=== PATIENT | male | born 1960 | race Caucasian/White ===

== ENCOUNTER → 2016-05-17 | Day surgery (SDC) | payer OTHER ==
[~2016-05-17] MED LIST: BUPIVACAINE 0.25%-EPINEPHRINE 1:200,000 30 ML ONE; FENTANYL 100 MCG/2 ML VIAL IV PRN; FENTANYL 100 MCG/2 ML VIAL ONE; HYDROmorphone 1 MG INJECTION IV PRN; LABETALOL 20 MG/4 ML SYRINGE IV PRN; Levofloxacin 500 mg/100 ml D5W 500 MG/100 ML RTU IV ONE; MEPERIDINE 25 MG/ML TUBEX IV PRN; ONDANSETRON HCL 4 MG ODT TAB PO PRN; ONDANSETRON HCL 4 MG/2 ML VIAL IV PRN; OXYCODONE HCL 5 MG TABLET ONE; PROMETHAZINE 25 MG/ML VIAL IV PRN; hydrALAZINE 20 MG/ML VIAL IV PRN
--- NOTE | 2016-05-17 09:42 | SC.ANESPOS ---
Post-Anesthesia Note LOC: [facility] Post-Anesthesia Assessment: Awake, Returned to Baseline, Hemodynamically Stable , Pain Control Adequate Phase I & II Recovery Complete: Yes Apparent Anesthesia Complication: No : N - Vital Signs Blood Pressure: 109/65 Pulse: 85 Resp Rate: 16 O2 Sat: 100 Temp: 97.4 F
--- NOTE | 2016-05-17 10:05 | HIM.ANES ---
Anesthesia Evaluation & Plan Diagnoses: UMBILICAL HERNIA WITHOUT OBSTRUCTION OR GANGRENE (05/17/16) Consented Procedure: UMBILICAL HERNIA REPAIR WITH MESH - Focused Review of Systems Cardiac History: No: Hx Cardiac Disorders HEENT: Yes: Other HEENT Problems Hx Other HEENT Problems: SEASONAL ALLERGIES Respiratory: Yes: Hx Asthma (Improved p allergy shots/no inhaler use for yrs), Hx Snoring Gastrointestinal: Yes: Hx Gastroesophageal Reflux Disease (Controlled p wgt loss ), Hx Gastrointestinal Disorders, Hx Colonoscopy Neurological/Musculoskeletal: No: Hx Neurological Disorders Psychological: No Hx Mental/Emotional Disorders Blood/Autoimmune: No: Hx AIDS, Hx Hepatitis (type) Smoking Status: Never smoker - Focused Physical Exam NPO since: 05/16/16 2300 Mallampati: Class IV Thyromental Distance: Greater than 3 Neck: Full Range of Motion Dental: Normal - no significant findings Cardiovascular/Chest: Normal Respiratory: Lungs clear Any problems with anesthesia, including nausea and vomiting?: No (NEVER HAD GENERAL ANESTHESIA) Any relatives with a history of Malignant Hyperthermia?: No Beta Nick given (if appropriate): N/A Does the patient have a history of Motion Sickness-: Yes Other: Allergies Allergy/AdvReac Type Severity Reaction Status Date / Time cat dander Allergy See Verified 05/17/16 09:52 Comments rabbit dander Allergy Difficulty Verified 05/17/16 09:52 Breathing Home Medications Medication Instructions Recorded Last Taken Type Fluticasone Propionate [Flonase] 1 - 2 spray YAMILE DAILY 05/04/16 05/16/16 07:00 History Alprazolam [Xanax] 0.25 - 0.5 mg PO DAILY PRN 05/14/16 05/17/16 08:05 History Cetirizine HCl [Zyrtec] 10 mg PO DAILY 05/14/16 05/17/16 08:00 History Albuterol Sulfate MDI [Proventil 2 puff INH Q4-6H PRN 05/17/16 Unknown History HFA] Height and Weight Patient's height 5 ft 10 in Patient's weight 230 lb Vital Signs Temperature 98.6 F 05/17/16 09:48 Pulse Rate 82 05/17/16 09:48 Respiratory Rate 18 05/17/16 09:48 Blood Pressure 131/80 05/17/16 09:48 Pulse Oxygen Saturation 97 05/17/16 09:48 - Anesthetic Plan Anesthesia Type: General ASA Class: 2 -: I have examined this patient and reviewed the medical record. The patient has been assessed prior to anesthesia. Risks and benefits of anesthesia and anesthetic technique options have been discussed and all questions answered. The patient accepts the risk and desires me to proceed with the planned anesthetic.
--- NOTE | 2016-05-17 12:55 | HIMOPRPT ---
DATE OF PROCEDURE: 05/17/16 PREOPERATIVE DIAGNOSES: Incarcerated umbilical hernia repair. POSTOPERATIVE DIAGNOSES: Same. PROCEDURES: Incarcerated umbilical hernia repair with mesh prosthesis. SURGEON: Hayden Treadwell MD ANESTHESIA: General. COMPLICATIONS: None. ESTIMATED BLOOD LOSS: Minimal. ANTIBIOTICS: Preoperative antibiotics given. INDICATIONS: Patient is a very pleasant 55-year-old male who had been found to have an umbilical hernia that had been enlarging and painful. We had felt he would benefit from hernia repair and had recommended so. We had explained the risks and benefits including the risk of infection, bleeding and anesthesia as well as the well-known risk of recurrence and mesh complications. He understood and agreed. OPERATIVE NOTE: The patient was brought to the operating room and placed on the operating table in the supine position. After adequate amount of general anesthesia he was prepped and draped in sterile manner. When given the okay by anesthesia after appropriate time-out a circum umbilical incision was made through the skin subcutaneous tissues was scalpel dissection. Bleeding was controlled with Bovie cautery. We carefully dissected around the hernia sac to the fascia and then entered the hernia sac without any problems. We closed the peritoneal defect after amputating the hernia sac and then created a preperitoneal space without any difficulties. Hemostasis was assured. A proceed patch was then placed in the preperitoneal space and sutured into position with 1. Vicryl sutures. Finally the defect in the fascia was brought together with [id number] 1. Vicryl sutures. The wound was irrigated and the umbilical skin was tacked down to the fascia with 3 0 Vicryl suture. Three 0 Vicryl suture was then used to bring the subcutaneous tissues together. Surgical clips were used to bring the skin together and a dry dressing was placed over top. The patient was awoke and taken recover room in excellent condition with correct sponge counts and needle counts.
[2016-05-17 13:57] VITALS: TEMP 97.4
[2016-05-17 14:44] VITALS: PULSE 85
[2016-05-17 14:54] VITALS: BP 109/65
== END ==
LOC: SDC 08:51
PROVIDERS: ATTEND Surgery
PROC: 0WUF0JZ Supplement Abdominal Wall with Synthetic Substitute, Open Approach (ICD-10-PCS; principal; 2016-05-17 10:15)
DX: K42.0 Umbilical hernia with obstruction, without gangrene (principal); J45.909 Unspecified asthma, uncomplicated; K21.9 Gastro-esophageal reflux disease without esophagitis; Z79.899 Other long term (current) drug therapy
CPT/HCPCS: 49587; C1781; J1956; J3010; J3490